=== PATIENT | female | born 1980 | race Two or more races ===

== ENCOUNTER 2017-04-07 13:33 | Inpatient (IN) | payer MEDICAID ==
[~2017-04-07] VITALS: Ht 160 cm; Wt 69.1 kg
[2017-04-07 14:06] LABS: Urine RBC None Seen /hpf (0 - 4)
[2017-04-07 14:21] LABS: Basophils # (auto) 0.1 uL; Basophils % (auto) 1.3 % (0.0-2.0); CONDITION Y; Eosinophils # (auto) 0.5 uL; Eosinophils % (auto) 4.9 % (0.0-7.0); Hematocrit 36.3 % (36.0-46.0); Lymphocytes # (auto) 1.8 uL; Lymphocytes % (auto) 18.6 % (10.0-50.0); Mean Corpuscular Hemoglobin 31.5 pg (28.0-32.0); Mean Corpuscular Hgb Conc. 33.2 g/dL (32.0-36.0); Mean Corpuscular Volume 95.1 fL (80.0-100.0); Mean Platelet Volume 9.4 fL (7.4-10.4); Monocytes # (auto) 0.7 uL; Monocytes % (auto) 7.3 % (0.0-12.0); Neutrophils # (auto) 6.5 uL; Neutrophils % (auto) 67.9 % (37.0-80.0); Platelet Count (auto) 359 10^3/uL (140-450); Red Cell Distribution Width 15.1 % (11.6-16.0); White Blood Cell 9.6 10^3/uL (4.4-10.8)
[2017-04-07 14:23] LABS: Urine Bilirubin Negative (Negative); Urine Blood Negative /uL (Negative); Urine Color Yellow (Yellow); Urine Glucose Normal (Normal); Urine Ketone Negative (Negative); Urine Mucus FEW (None Seen); Urine Nitrite Negative (Negative); Urine Squamous Epithelial Cell FEW /hpf (<5)
[2017-04-07 14:39] LABS: Albumin 2.9 g/dL (3.4-5.0); Calcium 7.9 mg/dL (8.5-10.1); Potassium 4.1 mmol/L (3.5-5.1)
[2017-04-07 14:42] LABS: Bilirubin, Total 0.3 mg/dL (0.2-1.0); Total Protein 6.9 g/dL (6.4-8.2)
[2017-04-07] MEDS ORDERED: ONDANSETRON HCL 4 MG/2 ML VIAL IV ONE (19:45)
[2017-04-07] MEDS ORDERED: SODIUM CHLORIDE 0.9% 1,000 ML IV ONE (19:45)
[2017-04-07] MEDS ORDERED: metroNIDAZOLE 500MG/100ML 100 ML IV ONE (20:00)
[2017-04-07] MEDS ORDERED: cefTRIAXone 1GM/50ML D5W 50 ML IV ONE (20:00)
[2017-04-07] MEDS ORDERED: MORPHINE SULF INJ 2 MG/ML SYRINGE 1ML IV ONE (20:00)
[2017-04-07] MEDS ORDERED: HYDROmorphone HCL 2 MG/ML VL IV ONE (21:00)
[2017-04-07] MEDS ORDERED: PANTOPRAZOLE 40 MG/10 ML VIAL IV ONE (23:45)
[2017-04-07] MEDS ORDERED: TEMAZEPAM 15 MG CAP PO PRN (23:45)
[2017-04-07] MEDS ORDERED: ONDANSETRON HCL 4 MG/2 ML VIAL IV PRN (23:45)
[2017-04-07] MEDS ORDERED: ACETAMINOPHEN 325 MG TAB PO PRN (23:45)
[2017-04-08] VITALS (9 sets, daily range): BP systolic 110–129; BP diastolic 75–91
[2017-04-08] MEDS: SODIUM CHLORIDE 0.9% 1,000 ML IV SCH ×2 (00:15→15:31)
[2017-04-08] MEDS: MORPHINE SULF INJ 2 MG/ML SYRINGE 1ML IV PRN ×4 (01:16→20:49)
[2017-04-08 05:59] LABS: Basophils # (auto) 0.1 uL; Basophils % (auto) 2.5 % (0.0-2.0); CONDITION Y; Eosinophils # (auto) 0.3 uL; Eosinophils % (auto) 6.4 % (0.0-7.0); Hematocrit 32.9 % (36.0-46.0); Hemoglobin 10.7 g/dL (12.2-16.2); Lymphocytes # (auto) 1.7 uL; Mean Corpuscular Hemoglobin 31.3 pg (28.0-32.0); Mean Corpuscular Hgb Conc. 32.4 g/dL (32.0-36.0); Mean Corpuscular Volume 96.3 fL (80.0-100.0); Mean Platelet Volume 10.3 fL (7.4-10.4); Monocytes # (auto) 0.5 uL; Monocytes % (auto) 8.6 % (0.0-12.0); Neutrophils # (auto) 2.7 uL; Neutrophils % (auto) 50.5 % (37.0-80.0); Platelet Count (auto) 255 10^3/uL (140-450); Red Cell Distribution Width 14.9 % (11.6-16.0); White Blood Cell 5.4 10^3/uL (4.4-10.8)
[2017-04-08] MEDS: metroNIDAZOLE 500MG/100ML 100 ML IV SCH ×3 (06:00→20:50)
[2017-04-08 06:36] LABS: Albumin 2.4 g/dL (3.4-5.0); BUN/Creatinine Ratio 13.2; Bilirubin, Total 0.4 mg/dL (0.2-1.0); Calcium 7.8 mg/dL (8.5-10.1); Potassium 3.7 mmol/L (3.5-5.1); Total Protein 5.9 g/dL (6.4-8.2)
[2017-04-08] MEDS: HYDROcodone-ACET 5/325MG TAB PO PRN (08:57)
[2017-04-08] MEDS: PANTOPRAZOLE 40 MG/10 ML VIAL IV SCH (10:00)
[2017-04-08] MEDS ORDERED: VANCOMYCIN PER PHARMACY 0 MG IV SCH (14:15)
[2017-04-08] MEDS: VANCOMYCIN 750 MG in D5W 5% 250 ML IV SCH (16:29)
[2017-04-08] MEDS: cefTRIAXone 1GM/50ML D5W 50 ML IV SCH (20:51)
[2017-04-09] MEDS: VANCOMYCIN 750 MG in D5W 5% 250 ML IV SCH ×2 (04:43→17:11)
[2017-04-09 05:19] LABS: Basophils # (auto) 0 uL; Basophils % (auto) 0.5 % (0.0-2.0); CONDITION Y; Eosinophils # (auto) 0.5 uL; Eosinophils % (auto) 8.4 % (0.0-7.0); Hematocrit 33.8 % (36.0-46.0); Hemoglobin 11.2 g/dL (12.2-16.2); Lymphocytes % (auto) 33.5 % (10.0-50.0); Mean Corpuscular Hemoglobin 31.4 pg (28.0-32.0); Mean Corpuscular Volume 95.2 fL (80.0-100.0); Mean Platelet Volume 9.9 fL (7.4-10.4); Monocytes # (auto) 0.6 uL; Monocytes % (auto) 9.4 % (0.0-12.0); Neutrophils # (auto) 2.9 uL; Neutrophils % (auto) 48.2 % (37.0-80.0); Platelet Count (auto) 308 10^3/uL (140-450); Red Cell Distribution Width 14.9 % (11.6-16.0); White Blood Cell 5.9 10^3/uL (4.4-10.8)
[2017-04-09 05:20] VITALS: BP 132/77
[2017-04-09 05:37] LABS: INR 0.95 (0.9-1.15); Partial Thromboplastin Time 26.9 sec (22.64-33.71); Prothrombin Time 10.3 sec (9.37-12.3)
[2017-04-09 05:42] LABS: Albumin 2.5 g/dL (3.4-5.0); BUN/Creatinine Ratio 11.8; Bilirubin, Total 0.2 mg/dL (0.2-1.0); Calcium 7.8 mg/dL (8.5-10.1); Potassium 3.5 mmol/L (3.5-5.1)
[2017-04-09] MEDS: metroNIDAZOLE 500MG/100ML 100 ML IV SCH (05:48)
[2017-04-09] MEDS: HYDROcodone-ACET 5/325MG TAB PO PRN ×2 (05:48→18:43)
[2017-04-09] MEDS: MORPHINE SULF INJ 2 MG/ML SYRINGE 1ML IV PRN ×3 (08:04→21:55)
[2017-04-09 09:20] VITALS: BP 134/95
[2017-04-09] MEDS: PANTOPRAZOLE 40 MG/10 ML VIAL IV SCH (09:26)
[2017-04-09] MEDS: SODIUM CHLORIDE 0.9% 1,000 ML IV SCH (09:27)
[2017-04-09] MEDS ORDERED: MIDAZOLAM HCL 1MG/1ML-2 ML VIAL ONE (11:30)
[2017-04-09] MEDS ORDERED: fentaNYL CITRATE 100 MCG/2 ML VL ONE (11:31)
[2017-04-09 13:00] VITALS: BP 130/93
[2017-04-09] MEDS: metroNIDAZOLE 500 MG TAB PO SCH ×2 (14:27→21:43)
[2017-04-09 16:42] VITALS: BP 128/90
[2017-04-09] MEDS: cefTRIAXone 1GM/50ML D5W 50 ML IV SCH (21:43)
[2017-04-09 21:56] VITALS: BP 143/102
[2017-04-10] MEDS: SODIUM CHLORIDE 0.9% 1,000 ML IV SCH (01:48)
[2017-04-10] MEDS: HYDROcodone-ACET 5/325MG TAB PO PRN ×4 (01:53→21:47)
[2017-04-10 05:00] VITALS: BP 129/85
[2017-04-10] MEDS: VANCOMYCIN 750 MG in D5W 5% 250 ML IV SCH (05:01)
[2017-04-10] MEDS: metroNIDAZOLE 500 MG TAB PO SCH ×3 (05:24→21:42)
[2017-04-10 06:37] LABS: Albumin 2.5 g/dL (3.4-5.0); BUN/Creatinine Ratio 9.8; Bilirubin, Total 0.3 mg/dL (0.2-1.0); Calcium 7.8 mg/dL (8.5-10.1); Potassium 3.7 mmol/L (3.5-5.1); Total Protein 6.3 g/dL (6.4-8.2)
[2017-04-10] MEDS: MORPHINE SULF INJ 2 MG/ML SYRINGE 1ML IV PRN ×2 (06:42→13:24)
[2017-04-10 08:42] VITALS: BP 132/77
[2017-04-10] MEDS: PANTOPRAZOLE 40 MG/10 ML VIAL IV SCH (09:41)
[2017-04-10 12:53] VITALS: BP 125/75
[2017-04-10] MEDS: LACTULOSE 20Gm/30ML SOLN PO SCH ×2 (14:05→17:57)
[2017-04-10] MEDS: DOCUSATE SOD 100 MG CAP PO SCH ×2 (15:24→21:42)
[2017-04-10 17:10] VITALS: BP 126/87
[2017-04-10] MEDS: cefTRIAXone 1GM/50ML D5W 50 ML IV SCH (21:42)
[2017-04-10 22:13] VITALS: BP 130/91
[2017-04-11] MEDS: LACTULOSE 20Gm/30ML SOLN PO SCH ×4 (00:08→17:57)
[2017-04-11 05:31] VITALS: BP 126/70
[2017-04-11] MEDS: metroNIDAZOLE 500 MG TAB PO SCH ×3 (06:01→22:03)
[2017-04-11] MEDS: HYDROcodone-ACET 5/325MG TAB PO PRN ×4 (06:01→20:20)
[2017-04-11 09:25] VITALS: BP 117/79
[2017-04-11] MEDS: PANTOPRAZOLE 40 MG/10 ML VIAL IV SCH (09:58)
[2017-04-11] MEDS: DOCUSATE SOD 100 MG CAP PO SCH ×2 (09:58→22:03)
[2017-04-11 12:43] VITALS: BP 120/82
[2017-04-11 16:07] LABS: Albumin 2.8 g/dL (3.4-5.0); Calcium 7.8 mg/dL (8.5-10.1); Potassium 4.4 mmol/L (3.5-5.1)
[2017-04-11 16:09] LABS: BUN/Creatinine Ratio 10.6
[2017-04-11 16:14] LABS: Bilirubin, Total 0.2 mg/dL (0.2-1.0); Total Protein 6.3 g/dL (6.4-8.2)
[2017-04-11 16:47] VITALS: BP 123/85
[2017-04-11] MEDS: cefTRIAXone 1GM/50ML D5W 50 ML IV SCH (22:03)
[2017-04-11 22:16] VITALS: BP 101/76
[2017-04-12] MEDS: LACTULOSE 20Gm/30ML SOLN PO SCH ×4 (00:31→18:00)
[2017-04-12] MEDS: HYDROcodone-ACET 5/325MG TAB PO PRN ×4 (04:31→21:17)
[2017-04-12] MEDS: metroNIDAZOLE 500 MG TAB PO SCH ×3 (05:33→22:35)
[2017-04-12 05:40] VITALS: BP 121/79
[2017-04-12] MEDS ORDERED: GASTROGRAFIN 30 ML SOL ONE (08:11)
[2017-04-12 08:42] VITALS: BP 104/72
[2017-04-12] MEDS: PANTOPRAZOLE 40 MG/10 ML VIAL IV SCH (09:46)
[2017-04-12] MEDS: DOCUSATE SOD 100 MG CAP PO SCH ×2 (09:47→22:00)
[2017-04-12] MEDS ORDERED: IOHEXOL 300 MG/ML 100ML BOTTLE IJ ONE (10:11)
[2017-04-12 12:37] VITALS: BP 135/84
[2017-04-12 16:48] VITALS: BP 117/67
[2017-04-12 22:00] VITALS: BP 124/88
[2017-04-12] MEDS: cefTRIAXone 1GM/50ML D5W 50 ML IV SCH (22:36)
[2017-04-13] MEDS: HYDROcodone-ACET 5/325MG TAB PO PRN ×2 (04:49→10:11)
[2017-04-13 05:00] VITALS: BP 116/75
[2017-04-13] MEDS: LACTULOSE 20Gm/30ML SOLN PO SCH ×3 (05:31→11:51)
[2017-04-13] MEDS: metroNIDAZOLE 500 MG TAB PO SCH (05:35)
[2017-04-13 09:00] VITALS: BP 117/73
[2017-04-13] MEDS ORDERED: PANTOPRAZOLE 40 MG TAB PO SCH (10:00)
[2017-04-13] MEDS: DOCUSATE SOD 100 MG CAP PO SCH (10:05)
[2017-04-13 12:50] VITALS: BP 117/73
== END 2017-04-13 13:34 | disposition home or self-care (01) | DRG 721 ==
LOC: ER 13:33 → TELE 13:34 → TELE-WESTW 04-08 00:30 → WEST WING 04-08 07:46
PROVIDERS: ADMIT Nurse Practitioner; ATTEND Internal Medicine
PROC: 0J983ZZ Drainage of Abdomen Subcutaneous Tissue and Fascia, Percutaneous Approach (ICD-10-PCS; principal; 2017-04-09)
DX: T81.4XXA Infection following a procedure, initial encounter (principal); A41.9 Sepsis, unspecified organism; E44.0 Moderate protein-calorie malnutrition; L02.211 Cutaneous abscess of abdominal wall; K91.872 Postprocedural seroma of a digestive system organ or structure following a digestive system procedure; N39.0 Urinary tract infection, site not specified; G47.00 Insomnia, unspecified; R79.89 Other specified abnormal findings of blood chemistry; Y83.8 Other surgical procedures as the cause of abnormal reaction of the patient, or of later complication, without mention of misadventure at the time of the procedure; K52.9 Noninfective gastroenteritis and colitis, unspecified; Y73.3 Surgical instruments, materials and gastroenterology and urology devices (including sutures) associated with adverse incidents; K59.00 Constipation, unspecified; Z98.84 Bariatric surgery status; Z68.27 Body mass index [BMI] 27.0-27.9, adult; Z90.49 Acquired absence of other specified parts of digestive tract; Y92.89 Other specified places as the place of occurrence of the external cause
CPT/HCPCS: 10022; 36415; 71010; 74176; 74177; 76705; 76942; 80053; 80202; 81001; 83605; 83690; 84702; 85025; 85610; 85730; 87040; 87070; 87081; 87086; 96361; 96365; 96367; 96375; C9113; J0696; J2250; J2405; J3490; J7060

== ENCOUNTER 2017-04-14 18:29 | Emergency (ER) | payer MEDICAID ==
[~2017-04-14] VITALS: Ht 160 cm; Wt 68.0 kg
[2017-04-14 18:39] VITALS: BP 128/87
== END 2017-04-15 02:20 | disposition left against medical advice (07) ==
LOC: ER 18:31
DX: S31.109D Unspecified open wound of abdominal wall, unspecified quadrant without penetration into peritoneal cavity, subsequent encounter (principal); Z53.21 Procedure and treatment not carried out due to patient leaving prior to being seen by health care provider; X58.XXXD Exposure to other specified factors, subsequent encounter

== ENCOUNTER 2023-02-08 11:04 | Emergency (ER) | payer MEDICAID ==
[~2023-02-08] VITALS: Ht 165.1 cm; Wt 87.7 kg
[2023-02-08 11:44] LABS: Urine Bacteria MANY /hpf (None Seen); Urine Blood Negative /uL (Negative); Urine Mucus FEW (None Seen); Urine Specific Gravity 1.018 (1.001-1.035); Urine WBC 1 /hpf (0 - 5)
[2023-02-08 11:47] LABS: Basophils # (auto) 0.1 10 ^3/uL (0-0.2); Basophils % (auto) 1.3 % (0.0-2.0); Eosinophils # (auto) 0.2 10 ^3/uL (0-0.8); Hematocrit 33.8 % (36.0-46.0); Hemoglobin 10.6 g/dL (12.2-16.2); Lymphocytes # (auto) 2.8 10 ^3/uL (0.4-5.4); Lymphocytes % (auto) 28.9 % (10.0-50.0); Mean Corpuscular Hemoglobin 27.9 pg (28.0-32.0); Mean Corpuscular Hgb Conc. 31.3 g/dL (32.0-36.0); Mean Corpuscular Volume 89.2 fL (80.0-100.0); Monocytes # (auto) 0.6 10 ^3/uL (0-1.3); Monocytes % (auto) 6.4 % (0.0-12.0); Neutrophils % (auto) 61.4 % (37.0-80.0); Nucleated Red Blood Cells % 0.1 %; Red Blood Cells 3.79 10^6/uL (4.0-5.20); Red Cell Distribution Width 21.1 % (11.8-14.3); White Blood Cell 9.7 10^3/uL (4.4-10.8)
[2023-02-08 12:05] LABS: Albumin 2.9 g/dL (3.4-5.0); BUN/Creatinine Ratio 9.5 (10.0-20.0); Potassium 4.4 mmol/L (3.5-5.1)
[2023-02-08 12:07] LABS: Bilirubin, Total 0.6 mg/dL (0.2-1.0); Total Protein 6.8 g/dL (6.4-8.2)
[2023-02-08] MEDS ORDERED: NITR-87 PO (15:13)
[2023-02-08 15:37] VITALS: BP 122/83
== END 2023-02-08 15:44 | disposition home or self-care (01) ==
LOC: ER 11:08
DX: K76.0 Fatty (change of) liver, not elsewhere classified (principal); R74.8 Abnormal levels of other serum enzymes; N39.0 Urinary tract infection, site not specified
CPT/HCPCS: 36415; 74176; 80053; 81001; 85025

== ENCOUNTER 2025-03-20 16:29 | Inpatient (IN) | payer MEDICAID ==
[~2025-03-20] VITALS: Ht 157.5 cm; Wt 83.5 kg
[~2025-03-20 16:29] MED LIST: NITR-87 PO
[2025-03-20] MEDS: MORPHINE SULFATE 4 MG/ML SYR/VIAL IV ONE (17:45)
--- NOTE | 2025-03-20 17:46 | ED.PDOC ---
GI ASSESSMENT HPI Comments 45y F who presents to the ED for chief complaint of abdominal pain. Pt states she has been having abdominal pain radiating to the back for the past 4 days. Pt states the pain is diffusely located, sharp in nature, rating the pain 10/10, constant, with no associated exacerbating or relieving factors. Pt has associated nausea, vomiting and constipation but otherwise denies any other symptoms. Pt states she had similar symptoms 8x years prior and states had small bowel obstruction and had surgery to relieve the obstruction. Pt otherwise states she cant remember when she last had bowel movement. Pt otherwise denies any symptoms at this time. Chief Complaint: Abdominal Pain Time Seen by MD: 17:42 Primary Care Provider: NONE Reviewed Notes: Nurses Notes, Medications, Allergies Allergies: Coded Allergies: NO KNOWN ALLERGIES (Unverified , 04/08/17) Home Meds Active Scripts Nitrofurantoin Monohydrate Mac (Macrobid) 100 Mg Cap, 100 MG PO BID for 7 Days, #14 CAP Prov:ARYAN CATHERINE MD 02/08/23 Information Source: Patient Mode of Arrival: Ambulatory Brought in by: self Timing: Days Duration: Since onset Prehospital treatment: None Quality: Sharp Vomitus: Food Particles Stool: Normal Severity: Moderate Recent: None Recent Hx of: Constipation Pain Location: Diffuse Modifying Factors: Nothing Associated sign and symptoms: Nausea, Vomiting, Constipation, Abdominal Pain Past Medical History PAST MEDICAL HISTORY: Denies Surgical History: Appendectomy, Cholecystectomy, Surgical History (Other): bowel resection for SBO 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 Family History Family History: Reviewed,noncontributory to illness Social History Smoker: Cigarettes Alcohol: Occasionally Drugs: Denies Drug Use Lives In: Home Constitutional: denies: chills, diaphoresis, fatigue, fever, malaise, sweats, weakness, others EENTM: denies: blurred vision, double vision, ear bleeding, ear discharge, ear drainage, ear pain, ear ringing, eye pain, eye redness, hearing loss, mouth pain, mouth swelling, nasal discharge, nose bleeding, nose congestion, nose pain, photophobia, tearing, throat pain, throat swelling, voice changes, others Respiratory: denies: cough, hemoptysis, orthopnea, SOB at rest, shortness of breath, SOB with excertion, stridor, wheezing, others Cardiovascular: denies: chest pain, dizzy spells, diaphoresis, Dyspnea on exertion, edema, irregular heart beat, left arm pain, lightheadedness, palpitations, PND, syncope, others Gastrointestinal: reports: abdominal pain, constipated, nausea, vomiting; denies: abdomen distended, blood streaked bowels, diarrhea, dysphagia, difficulty swallowing, hematemesis, melena, poor appetite, poor fluid intake, rectal bleeding, rectal pain, others Genitourinary: denies: abnormal vagina bleeding, burning, dyspareunia, dysuria, flank pain, frequency, hematuria, incontinence, pain, , vagina discharge, urgency, others Neurological: denies: dizziness, fainting, headache, left sided numbness, left sided weakness, numbness, paresthesia, pre-existing deficit, right sided numbness, right sided weakness, seizure, speech problems, tingling, tremors, weakness, others Musculoskeletal: denies: back pain, gout, joint pain, joint swelling, muscle pain, muscle stiffness, neck pain, others Integumetry: denies: bruises, change in color, change in hair/nails, dryness, laceration, lesions, lumps, rash, wounds, others Allergic/Immunocompromised: denies: Difficulty Healing, Frequent Infections, Hives, Itching, others Hematologic/Lymphatic: denies: anemia, blood clots, easy bleeding, easy bruising, swollen glands, others Endocrine: denies: excessive hunger, excessive sweating, excessive thirst, excessive urination, flushing, intolerance to cold, intolerance to heat, unexplained weight gain, unexplained weight loss, others Psychiatric: denies: anxiety, bipolar disorder, depression, hopeless, panic dis order, schizophrenia, sleepless, suicidal, others All Other Systems: Reviewed and Negative Physical Exam General Appearance: Moderate Distress HEENT: Normal ENT Inspection, Pharynx Normal, TMs Normal Neck: Full Range of Motion, Non-Tender, Normal, Normal Inspection Respiratory: Chest Non-Tender, Lungs Clear, No Accessory Muscle Use, No Respiratory Distress, Normal Breath Sounds Cardiovascular: No Edema, No JVD, No Murmur, No Gallop, Normal Peripheral Pulses, Regular Rate/Rhythm Breast Exam: Deferred Gastrointestinal: Diffuse, No Organomegaly, No Pulsatile Mass, Normal Bowel Sounds, Soft, Tenderness Genitalia: Deferred Pelvic: Deferred Rectal: Deferred Extremities: No calf tenderness, Normal capillary refill, Normal inspection, Normal range of motion, Non-tender, No pedal edema Musculoskeletal : Apperance: Normal Neurologic: Alert, funeral greeter II-XII nml as Tested, No Motor Deficits, Normal Affect, Normal Mood, No Sensory Deficits Cerebellar Function: Normal Reflexes: Normal Skin: Dry, Normal Color, Warm Lymphatic: No Adenopathy Was a procedure done? Was a procedure done?: No GI differential Dx Differential Diagnosis: Bowel Obstruction, Cholangitis, Cholecystitis, Constipa tion, Hernia, Pancreatitis, Hypovolemia, Ischemic Bowel X-Ray, Labs, Meds, VS Vital Signs Date Time Temp Pulse Resp B/P (MAP) Pulse Ox O2 Delivery O2 Flow Rate FiO2 03/20/25 16:32 98.7 101 18 140/93 98 98.7 Lab Test 03/20/25 18:09 Range/Units White Blood Count 11.1 H 4.4-10.8 10^3/uL Red Blood Count 3.47 L 4.0-5.20 10^6/uL Hemoglobin 13.0 12.2-16.2 g/dL Hematocrit 37.6 36.0-46.0 % Mean Corpuscular Volume 108.5 H 80.0-100.0 fL Mean Corpuscular Hemoglobin 37.4 H 28.0-32.0 pg Mean Corpuscular Hemoglobin Concent 34.5 32.0-36.0 g/dL Red Cell Distribution Width 24.9 H 11.8-14.3 % Platelet Count 172 140-450 10^3/uL Mean Platelet Volume 9.5 6.9-10.8 fL Neutrophils (%) (Auto) 71.5 37.0-80.0 % Lymphocytes (%) (Auto) 19.9 10.0-50.0 % Monocytes (%) (Auto) 7.1 0.0-12.0 % Eosinophils (%) (Auto) 0.9 0.0-7.0 % Basophils (%) (Auto) 0.6 0.0-2.0 % Neutrophils # (Auto) 8.0 1.6-8.6 10 ^3/uL Lymphocytes # (Auto) 2.2 0.4-5.4 10 ^3/uL Monocytes # (Auto) 0.8 0-1.3 10 ^3/uL Eosinophils # (Auto) 0.1 0-0.8 10 ^3/uL Basophils # (Auto) 0.1 0-0.2 10 ^3/uL Nucleated Red Blood Cells 0.0 % Platelet Estimate Adequate Anisocytosis (manual) Slight Macrocytosis Moderate Sodium Level 137 136-145 mmol/L Potassium Level 4.2 3.5-5.1 mmol/L Chloride Level 105 98-107 mmol/L Carbon Dioxide Level 25 20-31 mmol/L Anion Gap 7 5-15 Blood Urea Nitrogen 7 L 9-23 mg/dL Creatinine 0.74 0.550-1.02 mg/dL Glomerular Filtration Rate Calc 102 >90 mL/min BUN/Creatinine Ratio 9.5 L 10.0-20.0 Serum Glucose 94 74-106 mg/dL Calcium Level 8.7 8.7-10.4 mg/dL Exam: CT CT AB PEL WO CON-NO ORAL OR IV IMPRESSION: 1. No acute abdominal or pelvic findings. Diffuse hepatic steatosis. The patient's urine test is negative for infection The CBC shows an elevated white blood cell count of 11.1 At this time, the patient continues to have abdominal pain At this time the patient is being admitted to the hospitalist Images Reviewed?: Images reviewed and evaluated by me Time of 1ST Reevaluation: 20:51 Reevaluation 1ST: Unchanged Patient Education/Counseling: Diagnosis, Treatment, Prognosis Family Education/Counseling: No Family Present SEPSIS Sepsis Screen Date sepsis recognized/suspect: Mar 20, 2025 Time Sepsis recognized/suspect: 1631 Recent Procedure: No On Antibiotic Therapy: No Respiratory Rate >20: No Heart Rate >90: Yes Temp<36 C (96.8 F) or >38.3 C: No SBP <90 or MAP <65 mmHG: No New Acute Mental Status Change: No Is the patient on CPAP, BIPAP,: No Physician Orders Urinalysis (03/20/25 17:39) Ct Ab Pel Wo Con-No Oral Or Iv (03/20/25 17:39) Heplock Iv (03/20/25 17:39) Inspector Machine Cut Glass (03/20/25 17:39) Blood Pressure (03/20/25 17:39) Pulse Oximetry (03/20/25 17:39) Vital Signs Date Time Temp Pulse Resp B/P (MAP) Pulse Ox O2 Delivery O2 Flow Rate FiO2 03/20/25 16:32 98.7 101 18 140/93 98 98.7 Laboratory Tests Test 03/20/25 18:09 White Blood Count 11.1 10^3/uL (4.4-10.8) H Departure 1 Departure Time of Disposition: 20:51 Impression: Primary Impression: Intractable abdominal pain Disposition: ADMITTED INPATIENT Admit to: Med Surg Condition: Fair Critical Care Note Critical Care Time?: No Stability Stability form required: Yes Unstable for transfer: ED Physician Assesment (Clinical assesment) Heart Score Heart Score: Heart Score Response (Comments) Value History N/A 0 EKG N/A 0 Age N/A 0 Risk Factors N/A 0 Troponin N/A 0 Total 0 I personally scribed for MELL PEDROZA MD ([email or web address]) on 03/20/25 at 17:46. Electronically submitted by Herman Mireles ([email or web address]). I personally scribed for MELL PEDROZA MD ([email or web address]) on 03/20/25 at 18:48. Electronically submitted by Herman Mireles ([email or web address]). MELL PEDROZA MD Mar 20, 2025 17:46
--- NOTE | 2025-03-20 18:18 | DVH ---
Exam: CT CT AB PEL WO CON-NO ORAL OR IV History: pain Comparison Study: CT CT AB PEL WO CON-NO ORAL OR IV on DOS: 02/08/23 Technique: Multidetector spiral CT of the abdomen and pelvis was performed from lung bases to pubic symphysis. Imaging was performed without IV contrast. Axial, coronal and sagittal multiplanar reform ats were obtained from the axial data set by the technologist. Radiation dose : Abdomen/Pelvis: CTDIvol 11 mGy, DLP 574 mGy*cm. Findings: Evaluation of solid organs is limited due to lack of intravenous contrast use. Lung Bases: No acute or significant lung base finding. Normal heart size. No pleural or pericardial effusion. Liver: Diffuse hepatic steatosis. Gallbladder and biliary Tree: Gallbladder is surgically absent. Spleen: Unremarkable Pancreas: The pancreas is grossly normal in appearance. Adrenal Glands: Unremarkable Kidneys: Kidneys are grossly normal without calculi or hydronephrosis. Bladder: Grossly unremarkable for degree of distention. Bowel: Postsurgical changes in the stomach bowel. No evidence of bowel obstruction. The appendix is not visualized; however, no secondary findings of acute appendicitis identified. Ascites: Absent Lymphadenopathy: No mesenteric, retroperitoneal or periportal lymphadenopathy. Abdominal wall and Mesentery: Unremarkable. Vasculature: The visualized abdominal aorta is normal in size and caliber. Evaluation of abdominal a nd pelvic vessels is limited due to lack of intravenous contrast. Pelvic Organs: Intrauterine device in place. Musculoskeletal: No aggressive focal bony lesions, acute fractures or dislocation. IMPRESSION: 1. No acute abdominal or pelvic findings. Diffuse hepatic steatosis. Radiation optimization: All CT scans at this facility use at least one of these dose optimization lakia hniques: Automated exposure control mA and/or kV adjustment per patient size (includes targeted exams where dose is matched to clinical indication) or iterative reconstruction. HS:Y
[2025-03-20 18:20] LABS: Hematocrit 37.6 % (36.0-46.0); Hemoglobin 13.0 g/dL (12.2-16.2); Mean Corpuscular Hemoglobin 37.4 pg (28.0-32.0); Mean Corpuscular Volume 108.5 fL (80.0-100.0); Nucleated Red Blood Cells % 0.0 %
[2025-03-20 18:28] LABS: Chloride 105 mmol/L (98-107); Potassium 4.2 mmol/L (3.5-5.1); Sodium 137 mmol/L (136-145)
[2025-03-20 18:29] LABS: Anion Gap 7 (5-15); Calcium 8.7 mg/dL (8.7-10.4); Carbon Dioxide 25 mmol/L (20-31)
[2025-03-20 18:34] LABS: BUN/Creatinine Ratio 9.5 (10.0-20.0); Glucose 94 mg/dL (74-106)
[2025-03-20 18:35] LABS: Blood Urea Nitrogen 7 mg/dL (9-23)
[2025-03-20 18:39] LABS: Anisocytosis Slight; Macrocytosis Moderate
[2025-03-20] MEDS ORDERED: ONDANSETRON HCL 4 MG/2 ML VIAL IV PRN (22:15)
--- NOTE | 2025-03-20 23:07 | DVHHPRES ---
History of Present Illness Resident Creating Document: JERMAINE RANGEL RESIDENT History of Present Illness Radha Shields is a 45 yo female wit past medical history of SBO + laparotomy (2016) The patient presented to the ED for chief complaint of 4 days of abdominal pain, cramp-like, diffuse, irradiating to the flanks and back, associated with nausea and vomit. The patient reports not having a bowel movement in the last 7 days. Today, the abdominal pain increased to 10/10, constant, the patient reports she is not passing gases. The patient reports having similar symptoms due to SBO on 2017. The patient denies fever, chills, abdomen distention, or other symptoms. Initial evaluation showed WBC 11.1 x10e3 u/l. Abd/Pelv CT scan No acute abdominal or pelvic findings. Diffuse hepatic steatosis. UA negative for infection, HCG 2.9. CT Abdomen showed: Bowel: Postsurgical changes in the stomach bowel. No evidence of bowel obstruction. The appendix is not visualized; however, no secondary findings of acute appendicitis identified. No acute abdominal or pelvic findings. Diffuse hepatic steatosis. Past Surgical History: Appendectomy, Cholecystectomy, , Other (Laparotomy in 2017 due to SBO) Family History: None Smoke: <1 pack per day ALCOHOL: occassional Drugs: None Lives: with Family Review of Systems Constitutional: No: Fever, Chills, Sweats, Weakness, Malaise, Other Eyes: No: Pain, Vision change, Conjunctivae inflammation, Eyelid inflammation, Other, Redness ENT: No: Ear pain, Ear discharge, Nose pain, Nose discharge, Nose congestion, Mouth pain, Mouth swelling, Throat pain, Throat swelling, Other Respiratory: No: Cough, Dry, Shortness of breath, SOB with excertion, Wheezing, Hemoptysis, Pleuritic Pain, Sputum, Wheezing, Other Cardiovascular: No: Chest Pain, Palpitations, Orthopnea, Paroxysmal Noc. Dys pnea, Edema, Lt Headedness, Other Gastrointestinal: Nausea, Vomiting, Abdominal Pain, Constipation Genitourinary: No Dysuria, No Frequency, No Incontinence, No Hematuria, No Retention, No Other Musculoskeletal: No: other, neck pain, shoulder pain, arm pain, back pain, hand pain, leg pain, foot pain Skin: No: Rash, Lesions, Jaundice, Bruising, Other Neurological: No: Weakness, Numbness, Incoordination, Change in speech, Confusion, Seizures, Other Allergies: Coded Allergies: NO KNOWN ALLERGIES (Unverified , 04/08/17) Medications Current Medications Medications Dose Ordered Sig/Belle Route Start Time Stop Time Status Last Admin Dose Admin Acetaminophen/ Hydrocodone Bitart 1 tab Q4HP PRN PO 03/20/25 22:15 Ondansetron HCl 4 mg Q4HP PRN IV 03/20/25 22:15 Morphine Sulfate 2 mg Q4HPRN PRN IV 03/20/25 22:15 Exam Vital Signs Vital Signs Date Time Temp Pulse Resp B/P (MAP) Pulse Ox O2 Delivery O2 Flow Rate FiO2 03/20/25 22:26 98.3 86 16 145/88 (107) 99 98.3 General Appearance: Alert, Oriented X3, Cooperative, moderate distress HEENT: Atraumatic, Mucous membr. moist/pink Respiratory: Clear to auscultation, Normal air movement Cardiovascular: Regular rate, Normal S1, Normal S2, No murmurs Abdominal: Other (bowel movements present 2+, flat, not distended, vertical scar on epigastio from prevous surgery. Difussely tender to palpation in all quadrants, guarding.) Extremities: No clubbing, No cyanosis, No edema, Normal pulses, No te nderness/swelling Skin: No rashes Neuro: Normal gait, Normal speech, Strength at 5/5 X4 ext, Normal tone, Sensation intact, Cranial nerves 3-12 NL Psych/Mental Status: Mental status NL, Mood NL Labs/Xrays Labs Test 03/20/25 18:09 Range/Units White Blood Count 11.1 H 4.4-10.8 10^3/uL Red Blood Count 3.47 L 4.0-5.20 10^6/uL Hemoglobin 13.0 12.2-16.2 g/dL Hematocrit 37.6 36.0-46.0 % Mean Corpuscular Volume 108.5 H 80.0-100.0 fL Mean Corpuscular Hemoglobin 37.4 H 28.0-32.0 pg Mean Corpuscular Hemoglobin Concent 34.5 32.0-36.0 g/dL Red Cell Distribution Width 24.9 H 11.8-14.3 % Platelet Count 172 140-450 10^3/uL Mean Platelet Volume 9.5 6.9-10.8 fL Neutrophils (%) (Auto) 71.5 37.0-80.0 % Lymphocytes (%) (Auto) 19.9 10.0-50.0 % Monocytes (%) (Auto) 7.1 0.0-12.0 % Eosinophils (%) (Auto) 0.9 0.0-7.0 % Basophils (%) (Auto) 0.6 0.0-2.0 % Neutrophils # (Auto) 8.0 1.6-8.6 10 ^3/uL Lymphocytes # (Auto) 2.2 0.4-5.4 10 ^3/uL Monocytes # (Auto) 0.8 0-1.3 10 ^3/uL Eosinophils # (Auto) 0.1 0-0.8 10 ^3/uL Basophils # (Auto) 0.1 0-0.2 10 ^3/uL Nucleated Red Blood Cells 0.0 % Platelet Estimate Adequate Anisocytosis (manual) Slight Macrocytosis Moderate Sodium Level 137 136-145 mmol/L Potassium Level 4.2 3.5-5.1 mmol/L Chloride Level 105 98-107 mmol/L Carbon Dioxide Level 25 20-31 mmol/L Anion Gap 7 5-15 Blood Urea Nitrogen 7 L 9-23 mg/dL Creatinine 0.74 0.550-1.02 mg/dL Glomerular Filtration Rate Calc 102 >90 mL/min BUN/Creatinine Ratio 9.5 L 10.0-20.0 Serum Glucose 94 74-106 mg/dL Calcium Level 8.7 8.7-10.4 mg/dL SEPSIS Sepsis Screen Date sepsis recognized/suspect: Mar 20, 2025 Time Sepsis recognized/suspect: 1631 Recent Procedure: No On Antibiotic Therapy: No Respiratory Rate >20: No Heart Rate >90: Yes Temp<36 C (96.8 F) or >38.3 C: No SBP <90 or MAP <65 mmHG: No New Acute Mental Status Change: No Is the patient on CPAP, BIPAP,: No Physician Orders Urinalysis (03/20/25 17:39) Ct Ab Pel Wo Con-No Oral Or Iv (03/20/25 17:39) Heplock Iv (03/20/25 17:39) Rehabilitation Case Coordinator (03/20/25 17:39) Blood Pressure (03/20/25 17:39) Pulse Oximetry (03/20/25 17:39) Admit (03/20/25 22:12) Code Status (03/20/25 22:12) Vital Signs .PER UNIT PROTOCOL (03/20/25 22:12) Review Orders With Adm.Md (03/20/25 22:12) Bedrest With Bathroom Privileg (03/20/25 22:12) Npo (Nothing By Mouth) Diet (03/21/25 Breakfast) Notify Md Of Changes From Base (03/20/25 22:12) Advance Directive (03/20/25 22:12) Patient Condition (03/20/25 22:12) Allergies (03/20/25 22:12) Hydrocodone-Acet 5/325mg Tab ([place] (03/20/25 22:15) Ondansetron Hcl (Zofran) (03/20/25 22:15) Morphine Sulfate Injection (03/20/25 22:15) Notify Md Of Changes From Base (03/20/25 22:12) * Surgical Consult (03/20/25 ) Small Bowel Series-W Gastrogra (03/20/25 22:15) Beta Hcg, Quantitative (03/20/25 22:15) Vital Signs Date Time Temp Pulse Resp B/P (MAP) Pulse Ox O2 Delivery O2 Flow Rate FiO2 03/20/25 22:26 98.3 86 16 145/88 (107) 99 98.3 03/20/25 16:32 98.7 101 18 140/93 98 98.7 Laboratory Tests Test 03/20/25 18:09 White Blood Count 11.1 10^3/uL (4.4-10.8) H Assessment/Plan Assessment/Plan #Intractable abdominal pain #Rule out SBO #Leukocytosis IV fluids Morphine 2mg IV Flagyl IV Ceftriaxone IV Abdo/Pelvis CT Scan Gastrografin abdominal series Surgical consult #PO Intolerance IV fluids Zofran 4mg IV #Constipation #Hepatic Steatosis F/U with PCP as an out patient Diet: NPO DVT prophylaxis-Patient deambulating PUD prophylaxis Protonic Goals of care discussed with the patient > 35 min. Discussed plan of care with Dr. Antoine Code status: Full code PCP: Does not recall name Plan discussed with: Patient, the patient agrees with the admission plan. Plan discussed with: Patient My Orders Orders - CLAIRE,JERMAINE RESIDENT Procedure Category Date Status Time Admit ADMIT 03/20/25 Transmitted 22:12 Code Status CODE 03/20/25 Transmitted 22:12 Vital Signs ANA LUISA 03/20/25 In Process 22:12 Review Orders With [facility] 03/20/25 In Process Adm. 22:12 Bedrest With Bathroom ANA LUISA 03/20/25 In Process Privileg 22:12 Npo (Nothing By DIET 03/21/25 Transmitted Mouth) Diet Breakfast Notify Md Of Changes [facility] 03/20/25 In Process From Base 22:12 Advance Directive ANA LUISA 03/20/25 In Process 22:12 Patient Condition ORDERS 03/20/25 Transmitted 22:12 Allergies ANA LUISA 03/20/25 In Process 22:12 Hydrocodone-Acet PHA 03/20/25 In Process 5/325mg Tab ([place] 22:15 Ondansetron Hcl PHA 03/20/25 In Process (Zofran) 22:15 Morphine Sulfate PHA 03/20/25 In Process Injection 22:15 Notify Md Of Changes [facility] 03/20/25 In Process From Base 22:12 * Surgical Consult CONS 03/20/25 Transmitted Small Bowel Series-W XY 03/20/25 Logged Gastrogra 22:15 Beta Hcg, Quantitative LAB 03/20/25 In Process 22:15 Common Visit Codes: 72737-OOZNLOT INP/OBS CARE (HIGH) Secondary Visit Codes: 59062-ZODYRWHK CARE PLAN 30 MINUTES JERMAINE RANGEL RESIDENT Mar 20, 2025 23:07
[2025-03-21] VITALS (8 sets, daily range): BP systolic 107–129; BP diastolic 72–89; PULSE 67–83; RESP 16–18; TEMP 97.8–98.8; O2SAT 95–99
[2025-03-21] MEDS: ONDANSETRON HCL 4 MG/2 ML VIAL IV ONE (03:59)
[2025-03-21] MEDS: PANTOPRAZOLE 40 MG/10 ML VIAL INJ IV ONE (04:00)
[2025-03-21] MEDS: MORPHINE SULFATE INJ 2 MG/ml SYRG IV PRN (04:00)
[2025-03-21] MEDS: SODIUM CHLORIDE 0.9% 500 ML IVB ONE (04:12)
[2025-03-21] MEDS: cefTRIAXone 1GM/50ML D5W 50 ML IV SCH (04:23)
[2025-03-21 06:29] LABS: Hematocrit 33.0 % (36.0-46.0); Hemoglobin 11.5 g/dL (12.2-16.2); Mean Corpuscular Hemoglobin 38.1 pg (28.0-32.0); Mean Corpuscular Volume 109.7 fL (80.0-100.0); Nucleated Red Blood Cells % 0.1 %
[2025-03-21 07:18] LABS: Albumin 3.4 g/dL (3.2-4.8); Anion Gap 8 (5-15); BUN/Creatinine Ratio 11.5 (10.0-20.0); Carbon Dioxide 23 mmol/L (20-31); Glucose 75 mg/dL (74-106); Potassium 3.5 mmol/L (3.5-5.1); Sodium 138 mmol/L (136-145); Total Protein 6.2 g/dL (5.7-8.2)
[2025-03-21 07:20] LABS: Alanine Aminotransferase 72 U/L (7-40); Alkaline Phosphatase 254 U/L (46-116); Bilirubin, Total 2.8 mg/dL (0.2-1.0); Blood Urea Nitrogen 7 mg/dL (9-23); Calcium 8.2 mg/dL (8.7-10.4); Chloride 107 mmol/L (98-107)
[2025-03-21] MEDS ORDERED: GASTROGRAFIN 120 ML SOL ONE (08:43)
[2025-03-21 09:04] LABS: Anisocytosis Moderate; Macrocytosis Moderate
[2025-03-21] MEDS: KETOROLAC TROMETH 30 MG/ML 1ML VIAL IV ONE (12:27)
--- NOTE | 2025-03-21 12:35 | DVH ---
Procedure: XY SMALL BOWEL SERIES-W GASTROGRA Reason for study/Clinical History: Intractable abdominal Pain Comparison Study: None Technique: Single contrast small bowel series performed. FINDINGS/IMPRESSION: Initial snuff maker view of the abdomen and pelvis appears demonstrates no acute process. Contrast is identified within the colon by 45 minutes. This represents a normal small bowel transit time.
[2025-03-21] MEDS: D5W/SOD CHLO 0.9% 1,000 ML IV SCH (14:15)
[2025-03-21] MEDS ORDERED: POLYETHYLENE GLYCOL 17 GM PWDR PO PRN (16:30)
--- NOTE | 2025-03-21 16:33 | DVHCONRES ---
Date Seen: Mar 21, 2025 Resident Creating Document: LEONOR WHEELER RESIDENT Referring Physician Chiki Rai MD Reason for Consultation Intractable abdominal pain History of Present Illness This is a 45-year-old female with a history of small bowel obstruction (SBO) and laparotomy (2016), cholecystectomy, and appendectomy, presenting with 4 days of diffuse, cramping abdominal pain radiating to the flanks and back, associated with nausea, vomiting, and absence of flatus or bowel movement. Pain severity has increased to 10/10, constant. She reports last bowel movement 7 days ago and current PO intolerance. She had similar symptoms during her prior SBO episode in 2017. She denies fever, chills, dysuria, or recent dietary changes. Todays Progress Summary * Abdominal pain persists, localized and worsened. * PO intolerance continues with persistent nausea and vomiting. * Constipation ongoing no bowel movement for 7 days, not passing gas. * Leukocytosis mildly improved but still elevated. * LFTs mildly elevated (AST 165, ALT 72, Alk Phos 254, TBili 2.8). * CT abdomen/pelvis: No acute bowel obstruction, diffuse hepatic steatosis, no acute surgical findings. * IV antibiotics (Flagyl + Ceftriaxone) ongoing. * NPO with IV hydration. * Pain managed with IV morphine. Past Medical History * SBO with laparotomy (2016) * Constipation * Possible hepatic steatosis Past Surgical History * Appendectomy * Cholecystectomy * section * Exploratory laparotomy (2016) Family History: Patient reports no known family medical history. Family History * Lives with family Social History * Smoker: <1 pack/day * Alcohol: Occasional * No drug use * Lives with family Allergies: Coded Allergies: NO KNOWN ALLERGIES (Unverified , 04/08/17) Home Meds Active Scripts Nitrofurantoin Monohydrate Mac (Macrobid) 100 Mg Cap, 100 MG PO BID for 7 Days, #14 CAP Prov:ARYAN CATHERINE MD 02/08/23 Current Medications Current Medications Medications (Trade) Dose Ordered Sig/Belle Route PRN Reason Start Time Stop Time Status Last Admin Acetaminophen/ Hydrocodone Bitart (Hayden 5/325MG Tab) 1 tab Q4HP PRN PO MODERATE PAIN (4-6 PAIN SCALE) 03/20/25 22:15 Ondansetron HCl (Zofran) 4 mg Q4HP PRN IV NAUSEA / VOMITING 03/20/25 22:15 Morphine Sulfate 2 mg Q4HPRN PRN IV SEVERE PAIN (7-10 PAIN SCALE) 03/20/25 22:15 03/21/25 14:16 Metronidazole 100 ml @ 100 mls/hr Q8H IV 03/21/25 02:00 03/21/25 11:00 Ceftriaxone Sodium 50 ml @ 100 mls/hr DAILY@09 IV 03/21/25 02:00 03/21/25 10:15 Ketorolac Tromethamine (Toradol Injection) 30 mg Q6HPRN PRN IV for break throuh pain 03/21/25 12:15 03/26/25 12:14 Dextrose/Sodium Chloride 1,000 ml @ 75 mls/hr [id number] IV 03/21/25 13:00 03/21/25 14:15 Review of Systems * General: Negative for fever or chills * GI: Positive for severe abdominal pain, nausea, vomiting, constipation, anorexia * : Denies dysuria * Other systems: Not contributory to GI complaint today Vital Signs Vital Signs Date Time Temp Pulse Resp B/P (MAP) Pulse Ox O2 Delivery O2 Flow Rate FiO2 03/21/25 14:16 70 18 138/89 03/21/25 13:00 98.1 99 98.1 03/21/25 04:37 Room Air* 0 21 Physical Exam * General: Awake, appears uncomfortable * Abdomen: Distended, diffusely tender to palpation, no rebound/guarding, decreased bowel sounds * Rectal: Deferred today * Vitals: Stable * Hydration: Mildly dry mucous membranes Labs/Diagnostic Data Labs Test 03/21/25 05:59 03/21/25 05:49 03/20/25 18:09 Range/Units Plasma/Serum Blood Alcohol < 3.0 <10 mg/dL White Blood Count 8.4 4.4-10.8 10^3/uL Red Blood Count 3.01 L 4.0-5.20 10^6/uL Hemoglobin 11.5 L 12.2-16.2 g/dL Hematocrit 33.0 #L 36.0-46.0 % Mean Corpuscular Volume 109.7 H 80.0-100.0 fL Mean Corpuscular Hemoglobin 38.1 H 28.0-32.0 pg Mean Corpuscular Hemoglobin Concent 34.7 32.0-36.0 g/dL Red Cell Distribution Width 25.4 H 11.8-14.3 % Platelet Count 149 140-450 10^3/uL Mean Platelet Volume 9.9 6.9-10.8 fL Neutrophils (%) (Auto) 64.1 37.0-80.0 % Lymphocytes (%) (Auto) 27.1 10.0-50.0 % Monocytes (%) (Auto) 6.4 0.0-12.0 % Eosinophils (%) (Auto) 1.3 0.0-7.0 % Basophils (%) (Auto) 1.1 0.0-2.0 % Neutrophils # (Auto) 5.4 1.6-8.6 10 ^3/uL Lymphocytes # (Auto) 2.3 0.4-5.4 10 ^3/uL Monocytes # (Auto) 0.5 0-1.3 10 ^3/uL Eosinophils # (Auto) 0.1 0-0.8 10 ^3/uL Basophils # (Auto) 0.1 0-0.2 10 ^3/uL Nucleated Red Blood Cells 0.1 % Platelet Estimate Adequate Anisocytosis (manual) Moderate Macrocytosis Moderate Sodium Level 138 136-145 mmol/L Potassium Level 3.5 3.5-5.1 mmol/L Chloride Level 107 98-107 mmol/L Carbon Dioxide Level 23 20-31 mmol/L Anion Gap 8 5-15 Blood Urea Nitrogen 7 L 9-23 mg/dL Creatinine 0.61 0.550-1.02 mg/dL Glomerular Filtration Rate Calc 113 >90 mL/min BUN/Creatinine Ratio 11.5 10.0-20.0 Serum Glucose 75 74-106 mg/dL Calcium Level 8.2 L 8.7-10.4 mg/dL Total Bilirubin 2.8 H 0.2-1.0 mg/dL Aspartate Amino Transferase (AST) 165 H 13-40 U/L Alanine Aminotransferase (ALT) 72 H 7-40 U/L Alkaline Phosphatase 254 H 46-116 U/L Total Protein 6.2 5.7-8.2 g/dL Albumin 3.4 3.2-4.8 g/dL Vitamin B12 Level 363 211-911 pg/mL Folic Acid 4.08 >5.38 ng/mL Beta HCG, Quantitative 2.9 1.5-4.2 mIU/mL Assessment Assessment 1. Intractable abdominal pain likely functional or due to constipation/SBO hx 2. Constipation likely severe, 7 days since last BM 3. Leukocytosis possible reactive, no source of infection yet identified 4. PO intolerance nausea/vomiting requiring IV hydration and antiemetics 5. Hepatic steatosis incidental on imaging, LFTs mildly elevated Plan/Recommendation GI System * Constipation: * Start MiraLAX (Polyethylene Glycol 3350) 17 grams PO mixed in 8 oz water once daily * Add Lactulose 30 mL PO Q6H PRN for no BM * Order Fleet Enema (sodium phosphate) 118 mL SD once, reassess after 1 hour * Abdominal Pain: * Continue Morphine 2 mg IV Q4H PRN for severe pain * Monitor for signs of obstruction (e.g., vomiting, worsening distention) * Abdominal exam every shift * Rule Out SBO: * NPO * Serial abdominal exams * Continue IV fluids D5 NS with 20 mEq KCl @ 75 mL/hr * Follow-up Gastrografin series if clinically indicated * PO Intolerance / Nausea: * Continue Zofran 4 mg IV Q8H PRN * Strict I/Os * Monitor electrolytes daily * Hepatic Steatosis: * Incidental, likely NAFLD no acute intervention needed inpatient * Recommend outpatient follow-up with GI and LFT monitoring * Avoid hepatotoxic drugs * Encourage diet modification (low-fat, no alcohol) Infectious Disease / Antibiotics * Continue Flagyl 100 mL IV Q8H and Ceftriaxone 1 g IV Q24H (empiric until cultures or cause clarified) Supportive / Prophylactic * PUD prophylaxis: Protonix 40 mg IV daily Plan discussed with: Patient LEONOR WHEELER RESIDENT Mar 21, 2025 16:33
[2025-03-21] MEDS: CYANOCOBALAMIN (B-12) 1000 MCG/1 ML VIAL IM ONE (17:10)
[2025-03-21] MEDS: FOLIC ACID 1 MG in D5W 5% 50 ML INJ ONE (17:10)
[2025-03-21] MEDS: LACTULOSE 20Gm/30ML SOLN PO SCH (17:11)
[2025-03-21] MEDS: FLEET ENEMA(ADULT) 135 ML PR ONE (17:11)
[2025-03-21] MEDS: KETOROLAC TROMETH 30 MG/ML 1ML VIAL IV PRN (18:23)
--- NOTE | 2025-03-21 19:37 | DVHPNRES ---
Progress Note Date Seen: Mar 21, 2025 Resident Creating Document: [facility] INT Medical Necessity Reason Pt with a Central, PICC or Fol: No Subjective Review of Systems Radha Shields is a 45 yo female wit past medical history of SBO and laparotomy (2016). The patient presented to the ED for chief complaint of 4 days of abdominal pain, cramp-like, diffuse, radiating to the flanks and back, associated with nausea and vomit. The patient reports not having a bowel movement in the last 7 days. Yesterday, the abdominal pain increased to 10/10, constant, the patient reports she is not passing gases. The patient reports having similar symptoms due to SBO on 2017. The patient denies fever, chills, abdomen distention, or other symptoms. She reports she tried enema to pass the stool but was unsuccessful. Past Surgical History: Appendectomy, Cholecystectomy, , Other (Laparotomy in 2017 due to SBO) Family History: None Smoke: <1 pack per day ALCOHOL: occassional Drugs: None Lives: with Family ROS: Patient was seen and examined by me at the bedside. Overnight events reviewed. Patient still has constipation and is unable to pass any bowel movement even after Gastrografin. Fleet enema tried, lactulose given. Objective vital signs Vital Sign Date Time Temp Pulse Resp B/P (MAP) Pulse Ox O2 Delivery O2 Flow Rate FiO2 03/21/25 17:00 97.9 73 18 121/88 (99) 99 97.9 03/21/25 04:37 Room Air* 0 21 Total Intake and Output 03/20/25 03/20/25 03/21/25 15:00 23:00 07:00 Intake Total 550 ml Balance 550 ml medications Current Medications Medications Dose Ordered Sig/Belle Route Start Time Stop Time Status Last Admin Dose Admin Acetaminophen/ Hydrocodone Bitart 1 tab Q4HP PRN PO 03/20/25 22:15 Ondansetron HCl 4 mg Q4HP PRN IV 03/20/25 22:15 Morphine Sulfate 2 mg Q4HPRN PRN IV 03/20/25 22:15 03/21/25 14:16 2 MG Metronidazole 100 ml @ 100 mls/hr Q8H IV 03/21/25 02:00 03/21/25 18:16 100 MLS/HR Ceftriaxone Sodium 50 ml @ 100 mls/hr DAILY@09 IV 03/21/25 02:00 03/21/25 10:15 100 MLS/HR Ketorolac Tromethamine 30 mg Q6HPRN PRN IV 03/21/25 12:15 03/26/25 12:14 03/21/25 18:23 30 MG Dextrose/Sodium Chloride 1,000 ml @ 75 mls/hr [id number] IV 03/21/25 13:00 03/21/25 14:15 75 MLS/HR Lactulose 30 ml Q6HR PO 03/21/25 18:00 03/21/25 17:11 30 ML Pantoprazole Sodium 40 mg DAILY IV 03/22/25 10:00 Sodium Biphosphate/ Sodium Phosphate 135 ml DAILY [place] 03/22/25 10:00 Examination General Appearance: Alert, Oriented X3, Cooperative, moderate distress HEENT: Atraumatic, Mucous membr. moist/pink Respiratory: Clear to auscultation, Normal air movement Cardiovascular: Regular rate, Normal S1, Normal S2, No murmurs Abdominal: Other (bowel movements present 2+, flat, not distended, vertical scar on epigastio from prevous surgery. Difussely tender to palpation in all quadrants, guarding.) Extremities: No clubbing, No cyanosis, No edema, Normal pulses, No tenderness/swelling Skin: No rashes Neuro: Normal gait, Normal speech, Strength at 5/5 X4 ext, Normal tone, Sensation intact, Cranial nerves 3-12 NL Psych/Mental Status: Mental status NL, Mood NL laboratory and microbiology Laboratory Tests 03/21/25 05:49 Test 03/21/25 05:49 Range/Units Serum Glucose 75 74-106 mg/dL Labs and/or images reviewed: Labs reviewed by me, Image(s) reviewed by me Problem List/Assessment/Plan Problem List/Assessment/Plan #Intractable abdominal pain, Rule out SBO #Leukocytosis -Abd/Pelv CT scan: No acute abdominal or pelvic findings. Diffuse hepatic steatosis. -UA negative for infection, HCG 2.9. -IV fluids -pain management Morphine 2mg IV -Toradol 30 mg IV 6 hourly -Flagyl IV -Ceftriaxone IV -Gastrografin abdominal series Initial steel placer view of the abdomen and pelvis appears demonstrates no acute process. -Surgical consult #Constipation #PO Intolerance -IV fluids -Zofran 4mg IV -gastro consulted suggested lactulose 30 mL p.o., Fleet enema #Hepatic Steatosis -As seen in CT abdomen pelvis -F/U with PCP as an out patient # transaminitis # hyperbilirubinemia -monitor labs -USG liver -direct bilirubin, pending Diet: NPO DVT prophylaxis: ambulating PUD prophylaxis: Protonic Goals of care discussed with the patient > 35 min. Discussed plan of care with Dr. Green Plan discussed with: Patient, Other (rn) My Orders My Orders Orders - OLAF NAJERA Procedure Category Date Status Time Urinalysis LAB 03/21/25 Logged 08:00 Ketorolac Injection PHA 03/21/25 In Process (Toradol Injection) 12:15 D5w/Sod Chlo 0.9% PHA 03/21/25 In Process (D5w Ns 0.9%) 13:00 Full Liq Diet DIET 03/21/25 Transmitted Dinner Fleet Enema Adult PHA 03/22/25 In Process 10:00 OLAF NAJERA RESIDENT Mar 21, 2025 19:37
--- NOTE | 2025-03-21 20:41 | DVH ---
ULTRASOUND DOPPLER CLINICAL HISTORY: cholestatic liver disease TECHNIQUE: Doppler examination of the abdomen was performed. COMPARISON: None FINDINGS: The liver is enlarged measuring 18 cm. There is increased hepatic echogenicity. There are no masses . There is hepatopetal flow. Prior cholecystectomy. The common bile duct measures 7 mm. The right kidney measures 11.6 cm. No stones or hydronephrosis are seen. IMPRESSION: 1. Hepatomegaly and increased echogenicity of the liver which may reflect hepatic steatosis or intrin sic hepatocellular disease.
[2025-03-22] VITALS (8 sets, daily range): BP systolic 117–134; BP diastolic 67–90; PULSE 54–74; RESP 16–19; TEMP 97–97.9; O2SAT 96–99
[2025-03-22] MEDS: HYDROcodone-ACET 5/325MG TAB PO PRN (00:48)
[2025-03-22 06:20] LABS: Hematocrit 32.6 % (36.0-46.0); Hemoglobin 11.2 g/dL (12.2-16.2); Mean Corpuscular Hemoglobin 37.9 pg (28.0-32.0); Mean Corpuscular Volume 110.5 fL (80.0-100.0); Nucleated Red Blood Cells % 0.1 %
[2025-03-22 06:28] LABS: Alanine Aminotransferase 83 U/L (7-40); Albumin 3.2 g/dL (3.2-4.8); Alkaline Phosphatase 247 U/L (46-116); Anion Gap 4 (5-15); BUN/Creatinine Ratio 9.0 (10.0-20.0); Bilirubin, Direct 1.5 mg/dL (<0.3); Bilirubin, Total 2.3 mg/dL (0.2-1.0); Blood Urea Nitrogen 6 mg/dL (9-23); Calcium 8.1 mg/dL (8.7-10.4); Carbon Dioxide 26 mmol/L (20-31); Chloride 110 mmol/L (98-107); Glucose 81 mg/dL (74-106); Potassium 3.7 mmol/L (3.5-5.1); Sodium 140 mmol/L (136-145); Total Protein 5.7 g/dL (5.7-8.2)
[2025-03-22] MEDS: CYANOCOBALAMIN (B-12) 1000 MCG/1 ML VIAL IM ONE (07:24)
[2025-03-22] MEDS ORDERED: DOX100T PO (09:42)
[2025-03-22] MEDS ORDERED: AUG875T PO (09:42)
[2025-03-22] MEDS: FLEET ENEMA(ADULT) 135 ML PR SCH (09:54)
[2025-03-22] MEDS: PANTOPRAZOLE 40 MG/10 ML VIAL INJ IV SCH (09:54)
[2025-03-22] MEDS: FOLIC ACID 1 MG in D5W 5% 50 ML INJ ONE (10:00)
[2025-03-22] MEDS: DOCUSATE SOD 100 MG CAP PO SCH (10:29)
[2025-03-22] MEDS: LACTULOSE 20Gm/30ML SOLN PO SCH (10:29)
[2025-03-22] MEDS: DICYCLOMINE HCL 10 MG CAP PO SCH (10:29)
--- NOTE | 2025-03-22 10:31 | DVH ---
Date: 03/22/2025 09:37 AM Examination: XY KUB ABDOMEN SINGLE VIEW History: f/u Comparison: XY SMALL BOWEL SERIES-W GASTROGRA on DOS: 03/21/25, CT CT AB PEL WO CON-NO ORAL OR IV on DO S: 03/20/25, CT CT AB PEL WO CON-NO ORAL OR IV on DOS: 02/08/23 TECHNIQUE: Frontal views of the abdomen was obtained. FINDINGS: Bowel gas pattern is unremarkable. The lung bases are unremarkable. No acute osseous abnormality identified. IUD is pelvis. 2 metallic densities. LUQ surgical clips IMPRESSION: Nonobstructive bowel gas pattern.
--- NOTE | 2025-03-22 11:18 | DVHPN2 ---
Progress Note Date Seen: Mar 22, 2025 Resident Creating Document: LEONOR WHEELER RESIDENT Has the PT tested + for MRSA If YES, has PT been informed?: No Medical Necessity Reason Pt with a Central, PICC or Fol: No Subjective Review of Systems This is a 45-year-old female with a history of small bowel obstruction (SBO) and laparotomy (2017), cholecystectomy, and appendectomy, presenting with 4 days of diffuse, cramping abdominal pain radiating to the flanks and back, associated with nausea, vomiting, and absence of flatus or bowel movement. Pain severity has increased to 10/10, constant. She reports last bowel movement 7 days ago and current PO intolerance. She had similar symptoms during her prior SBO episode in 2017. She denies fever, chills, dysuria, or recent dietary changes. Todays Progress Summary Abdominal pain has improved, although still rated as 8-10, and described as diffuse and cramping in nature. Bloating completely resolved. Patient had 2 bowel movements this morning. Tolerating full liquid diet without nausea or vomiting. No new episodes of emesis or worsening distention. Patient is now clinically more stable and able to maintain oral intake. No signs of complete obstruction. Ongoing hepatic workup due to elevated LFTs and bilirubin. Today's brief summary Liver function markers remain elevated, hepatic steatosis confirmed on imaging. New labs total and bilirubin elevated, AST ALT elevated, lipase normal. Hepatic ultrasound today shows hepatomegaly and increased echogenicity. KUB shows nonobstructive bowel gas pattern. Further hepatic workup initiated today which includes hepatitis panel, ferritin, CIRA, MRCP, CMP. Two spontaneous BMs today after laxatives/enema regimen. Objective vital signs Vital Sign Date Time Temp Pulse Resp B/P (MAP) Pulse Ox O2 Delivery O2 Flow Rate FiO2 03/22/25 10:24 62 17 128/81 03/22/25 08:52 97.9 96 97.9 03/21/25 20:00 Room Air* 0 21 Total Intake and Output 03/21/25 03/21/25 03/22/25 15:00 23:00 07:00 Intake Total 150 ml 350.2 ml 1280 ml Balance 150 ml 350.2 ml 1280 ml medications Current Medications Medications Dose Ordered Sig/Belle Route Start Time Stop Time Status Last Admin Dose Admin Acetaminophen/ Hydrocodone Bitart 1 tab Q4HP PRN PO 03/20/25 22:15 03/22/25 07:14 1 TAB Ondansetron HCl 4 mg Q4HP PRN IV 03/20/25 22:15 Morphine Sulfate 2 mg Q4HPRN PRN IV 03/20/25 22:15 03/22/25 09:54 2 MG Metronidazole 100 ml @ 100 mls/hr Q8H IV 03/21/25 02:00 03/22/25 09:54 100 MLS/HR Ceftriaxone Sodium 50 ml @ 100 mls/hr DAILY@09 IV 03/21/25 02:00 03/22/25 09:02 100 MLS/HR Ketorolac Tromethamine 30 mg Q6HPRN PRN IV 03/21/25 12:15 03/26/25 12:14 03/21/25 18:23 30 MG Dextrose/Sodium Chloride 1,000 ml @ 75 mls/hr [id number] IV 03/21/25 13:00 03/22/25 02:20 75 MLS/HR Pantoprazole Sodium 40 mg DAILY IV 03/22/25 10:00 03/22/25 09:54 40 MG Sodium Biphosphate/ Sodium Phosphate 135 ml DAILY [place] 03/22/25 10:00 03/22/25 09:54 135 ML Folic Acid 1 mg DAILY PO 03/23/25 10:00 Dicyclomine HCl 10 mg BID PO 03/22/25 10:00 03/22/25 10:29 10 MG Lactulose 30 ml DAILY PO 03/22/25 10:00 03/22/25 10:29 30 ML Docusate Sodium 100 mg BID PO 03/22/25 10:00 03/22/25 10:29 100 MG Examination General-alert, oriented, no distress. Abdomen-soft, nondistended, diffuse tenderness on deep palpation, no rebound or guarding, bowel sounds present. Vitals-stable Nutrition tolerating full liquid diet orally laboratory and microbiology Laboratory Tests 03/22/25 05:33 Test 03/22/25 05:33 Range/Units Serum Glucose 81 74-106 mg/dL Microbiology Date/Time Source Procedure Growth Status 03/21/25 05:59 Blood Blood Culture - Preliminary NO GROWTH AFTER 24 HOURS OF INCUBATION. Resulted Problem List/Assessment/Plan Problem List/Assessment/Plan Assessment 1. Intractable abdominal pain likely functional or due to constipation/SBO hx/improving, likely secondary to constipation and posteriorly state. SBO ruled out via CT/KUB. 2. Constipation now resolving, patient had 2 bowel movements today. 3. Leukocytosis possible reactive, no source of infection yet identified 4. PO intolerance NPO advanced to full liquids because improved p.o. tolerance 5. Hepatic steatosis incidental on imaging, LFTs mildly elevated confirmed on imaging ongoing evaluation for underlying hepatocellular disease 6. Elevated transaminases and cholestasis-AST ALT and alkaline phosphatase are elevated, total bilirubin is elevated differentials include NAFLD/Quinones, alcohol hepatitis, autoimmune, viral hepatitis. Plan/Recommendation GI System Continue full liquid diet, monitor for tolerance. * Constipation: * Start MiraLAX (Polyethylene Glycol 3350) 17 grams PO mixed in 8 oz water once daily * Add Lactulose 30 mL PO Q6H PRN for no BM * Order Fleet Enema (sodium phosphate) 118 mL VA once, reassess after 1 hour * Abdominal Pain: * Continue Morphine 2 mg IV Q4H PRN for severe pain * Monitor for signs of obstruction (e.g., vomiting, worsening distention) * Abdominal exam every shift * Rule Out SBO: * NPO * Serial abdominal exams * Continue IV fluids D5 NS with 20 mEq KCl @ 75 mL/hr * Follow-up Gastrografin series if clinically indicated * PO Intolerance / Nausea: * Continue Zofran 4 mg IV Q8H PRN * Strict I/Os * Monitor electrolytes daily * Hepatic Steatosis: * Incidental, likely NAFLD or alcohol liver disease/autoimmune hepatitis, acute viral hepatitis, drug-induced liver injury-hepatic workup ordered today acute hepatitis panel, comprehensive metabolic panel, comprehensive hepatic panel, ferritin, CIRA, MRCP * Avoid hepatotoxic drugs * Encourage diet modification (low-fat, no alcohol) Infectious Disease / Antibiotics * Continue Flagyl 100 mL IV Q8H and Ceftriaxone 1 g IV Q24H (empiric until cultures or cause clarified) Supportive / Prophylactic * PUD prophylaxis: Protonix 40 mg IV daily Whole findings plan of care were discussed with the attending physician Dr. Bolton and she agreed upon the plan and also discuss the same with the patient and RN and the patient agreed upon the goal of care. Plan discussed with: Patient My Orders My Orders Orders - LEONOR WHEELER RESIDENT Procedure Category Date Status Time Pantoprazole PHA 03/22/25 In Process (Protonix) 10:00 LEONOR WHEELER RESIDENT Mar 22, 2025 11:18
--- NOTE | 2025-03-22 12:48 | DVH ---
PROCEDURE: MRI MRCP MRI Indication: elevated liver tests COMPARISON: 03/21/2025, 03/20/2025 TECHNIQUE: Multiplanar multisequence images of the abdomen are obtianed per MRCP protocol. FINDINGS: Hepatomegaly, hepatic steatosis. The common bile duct is dilated to 10 mm.. Pancreatic duct normal in caliber measuring 3 mm Adrenal glands unremarkable. Kidneys demonstrate no hydronephrosis. Spleen, pancreas unremarkable. C holecystectomy. Postsurgical changes stomach/gastrojejunostomy. Tiny bilateral pleural effusions. IMPRESSION: Hepatic steatosis. Hepatomegaly. Cholecystectomy. Dilated common bile duct measuring 10 mm which could be secondary to underlying cholecystectomy / res ervoir effect. Correlate clinically to exclude obstructing biliary / ampullary etiology. Postsurgical changes stomach/gastrojejunostomy.
--- NOTE | 2025-03-22 17:15 | DVHPNRES ---
Progress Note Date Seen: Mar 22, 2025 Resident Creating Document: OLAF NAJERA RESIDENT Has the PT tested + for MRSA If YES, has PT been informed?: No Medical Necessity Reason Pt with a Central, PICC or Fol: No Subjective Review of Systems Radha Shields is a 45 yo female wit past medical history of SBO and laparotomy (2017). The patient presented to the ED for chief complaint of 4 days of abdominal pain, cramp-like, diffuse, radiating to the flanks and back, associated with nausea and vomit. The patient reports not having a bowel movement in the last 7 days. Yesterday, the abdominal pain increased to 10/10, constant, the patient reports she is not passing gases. The patient reports having similar symptoms due to SBO on 2017. The patient denies fever, chills, abdomen distention, or other symptoms. She reports she tried enema to pass the stool but was unsuccessful. Past Surgical History: Appendectomy, Cholecystectomy, , Other (Laparotomy in 2017 due to SBO) Family History: None Smoke: <1 pack per day ALCOHOL: occassional Drugs: None Lives: with Family ROS: Patient was seen and examined by me at the bedside. Overnight events reviewed. Patient still has constipation and is unable to pass any bowel movement even after Gastrografin. Fleet enema tried, lactulose given. 03/22/25 Patient was seen and examined by me at the bedside. Patient had 2 bowel movements yesterday at 12:00 a.m. and 4:00 a.m.. Patient still complains of cramping abdominal pain even after evacuating bowels. Decreasing her lactulose dose from BD to OD today. We have given her docusate 100 mg BD, Fleet enema will be continued. B12 and folic acid was repleted. Usg liver showed hepatomegaly and increased echogenicity of the liver which may reflect hepatic steatosis or intrinsic hepatocellular disease. total bilirubin was increased. We ordered-direct bilirubin, inc -1.5,-Lactic acid1.2,-LDH, haptoglobin,, pending,retic-1.41 normal, GGT-568 (high). Objective vital signs Vital Sign Date Time Temp Pulse Resp B/P (MAP) Pulse Ox O2 Delivery O2 Flow Rate FiO2 03/22/25 17:08 62 18 128/70 03/22/25 13:00 97.8 99 97.8 03/22/25 08:00 Room Air* 0 21 Total Intake and Output 03/21/25 03/21/25 03/22/25 15:00 23:00 07:00 Intake Total 150 ml 350.2 ml 1280 ml Balance 150 ml 350.2 ml 1280 ml medications Current Medications Medications Dose Ordered Sig/Belle Route Start Time Stop Time Status Last Admin Dose Admin Acetaminophen/ Hydrocodone Bitart 1 tab Q4HP PRN PO 03/20/25 22:15 03/22/25 14:13 1 TAB Ondansetron HCl 4 mg Q4HP PRN IV 03/20/25 22:15 Morphine Sulfate 2 mg Q4HPRN PRN IV 03/20/25 22:15 03/22/25 17:08 2 MG Metronidazole 100 ml @ 100 mls/hr Q8H IV 03/21/25 02:00 03/22/25 17:04 100 MLS/HR Ceftriaxone Sodium 50 ml @ 100 mls/hr DAILY@09 IV 03/21/25 02:00 03/22/25 09:02 100 MLS/HR Ketorolac Tromethamine 30 mg Q6HPRN PRN IV 03/21/25 12:15 03/26/25 12:14 03/21/25 18:23 30 MG Dextrose/Sodium Chloride 1,000 ml @ 75 mls/hr [id number] IV 03/21/25 13:00 03/22/25 15:40 75 MLS/HR Pantoprazole Sodium 40 mg DAILY IV 03/22/25 10:00 03/22/25 09:54 40 MG Sodium Biphosphate/ Sodium Phosphate 135 ml DAILY MD 03/22/25 10:00 03/22/25 09:54 135 ML Folic Acid 1 mg DAILY PO 03/23/25 10:00 Dicyclomine HCl 10 mg BID PO 03/22/25 10:00 03/22/25 10:29 10 MG Lactulose 30 ml DAILY PO 03/22/25 10:00 03/22/25 10:29 30 ML Docusate Sodium 100 mg BID PO 03/22/25 10:00 03/22/25 10:29 100 MG Examination General Appearance: Alert, Oriented X3, Cooperative, moderate distress HEENT: Atraumatic, Mucous membr. moist/pink Respiratory: Clear to auscultation, Normal air movement Cardiovascular: Regular rate, Normal S1, Normal S2, No murmurs Abdominal: Other (bowel movements present 2+, flat, not distended, vertical scar on epigastio from prevous surgery. Difussely tender to palpation in all quadrants, guarding.) Extremities: No clubbing, No cyanosis, No edema, Normal pulses, No tenderness/swelling Skin: No rashes Neuro: Normal gait, Normal speech, Strength at 5/5 X4 ext, Normal tone, Sensation intact, Cranial nerves 3-12 NL Psych/Mental Status: Mental status NL, Mood NL laboratory and microbiology Laboratory Tests 03/22/25 05:33 Test 03/22/25 05:33 Range/Units Serum Glucose 81 74-106 mg/dL Microbiology Date/Time Source Procedure Growth Status 03/21/25 05:59 Blood Blood Culture - Preliminary NO GROWTH AFTER 24 HOURS OF INCUBATION. Resulted Labs and/or images reviewed: Labs reviewed by me, Image(s) reviewed by me Problem List/Assessment/Plan Problem List/Assessment/Plan #Intractable abdominal pain, Rule out SBO #Leukocytosis -Abd/Pelv CT scan: No acute abdominal or pelvic findings. Diffuse hepatic steatosis. -UA negative for infection, HCG 2.9. -IV fluids -pain management Morphine 2mg IV -Toradol 30 mg IV 6 hourly -Flagyl IV -Ceftriaxone IV -Gastrografin abdominal series Initial equity sales assistant view of the abdomen and pelvis appears demonstrates no acute process. -Surgical consult #Constipation #PO Intolerance -IV fluids -Zofran 4mg IV -gastro consulted suggested lactulose 30 mL p.o., Fleet enema continued -Lactulose from BT to OD today on 03/22/2025 -Docusate 100 mg BD continued #Hepatic Steatosis -As seen in CT abdomen pelvis -F/U with PCP as an out patient -USG liver shows hepatomegaly and increased echogenicity of the liver which may reflect hepatic steatosis or intrinsic hepatocellular disease. # transaminitis # hyperbilirubinemia -monitor labs -direct bilirubin, inc -1.5 -Lactic acid 1.2 -LDH, haptoglobin,, pending -retic-1.41 normal - AST to ALT ratio greater than 2 -GGT-568 (high) # vitamin B12 deficiency - repleted # folate deficiency - repleted Diet: NPO DVT prophylaxis: ambulating PUD prophylaxis: Protonic Goals of care discussed with the patient > 35 min. Discussed plan of care with Dr. Green Plan discussed with: Patient, Other (rn) My Orders My Orders Orders - OLAF NAJERA Procedure Category Date Status Time Full Liq Diet DIET 03/21/25 Transmitted Dinner Fleet Enema Adult PHA 03/22/25 In Process 10:00 LIVER US 03/21/25 Resulted 19:40 Folic Acid Tablet PHA 03/23/25 In Process 10:00 Haptoglobin LAB 03/22/25 In Process 09:37 Docusate Sodium PHA 03/22/25 In Process Capsule (Colace 10:00 Communication Order ORDERS 03/22/25 Transmitted 09:47 OLAF NAJERA RESIDENT Mar 22, 2025 17:15
[2025-03-23] VITALS (8 sets, daily range): BP systolic 120–135; BP diastolic 77–89; PULSE 68–77; RESP 17–24; TEMP 96.8–98.1; O2SAT 97–99
[2025-03-23 07:33] LABS: Hematocrit 31.5 % (36.0-46.0); Hemoglobin 10.9 g/dL (12.2-16.2); Mean Corpuscular Hemoglobin 38.4 pg (28.0-32.0); Mean Corpuscular Volume 110.3 fL (80.0-100.0); Nucleated Red Blood Cells % 0.1 %
[2025-03-23 07:35] LABS: Anion Gap 5 (5-15); Carbon Dioxide 23 mmol/L (20-31); Glucose 79 mg/dL (74-106); Sodium 138 mmol/L (136-145)
[2025-03-23 07:36] LABS: Bilirubin, Total 1.2 mg/dL (0.2-1.0)
[2025-03-23 07:46] LABS: Alanine Aminotransferase 64 U/L (7-40); Albumin 3.1 g/dL (3.2-4.8); Alkaline Phosphatase 218 U/L (46-116); BUN/Creatinine Ratio 8.9 (10.0-20.0); Blood Urea Nitrogen < 5 mg/dL (9-23); Calcium 7.8 mg/dL (8.7-10.4); Chloride 110 mmol/L (98-107); Potassium 3.3 mmol/L (3.5-5.1); Total Protein 5.5 g/dL (5.7-8.2)
[2025-03-23] MEDS: FOLIC ACID 1 MG TAB PO SCH (09:07)
[2025-03-23] MEDS ORDERED: POTASSIUM CHL 20MEQ/100ML 100 ML IV SCH (11:45)
[2025-03-23 13:48] LABS: Hepatitis A Total Antibody Positive (Negative); Hepatitis B Surface Antigen Negative (Negative); Hepatitis C Antibody Negative (Negative)
[2025-03-23] MEDS: DICYCLOMINE HCL 10 MG CAP PO ONE (14:03)
[2025-03-23] MEDS: POTASSIUM CHL 20MEQ/100ML 100 ML IV SCH (14:03)
--- NOTE | 2025-03-23 16:27 | DVHPN2 ---
Progress Note Date Seen: Mar 23, 2025 Resident Creating Document: LEONOR WHEELER RESIDENT Has the PT tested + for MRSA If YES, has PT been informed?: No Medical Necessity Reason Pt with a Central, PICC or Fol: No Subjective Review of Systems This is a 45-year-old female with a history of SBO with laparotomy in 2017, cholecystectomy, and appendectomy, initially presented with a diffuse abdominal pain, nausea, vomiting and constipation no bowel movement for 7 days. Today- Pain improved significantly compared to previous days, residual mild discomfort only. Bowel function the patient had 2 spontaneous bowel movements today. GI symptoms no nausea or vomiting. Diet tolerating full liquid diet without issue, diet advanced to soft diet today. The patient is cleared for discharge from GI standpoint if she is tolerating the diet advancement to soft diet today. Brief summary of today's progress, treatment, labs, imaging and plan Symptoms pain improved, no emesis, normal bowel function restored. Labs revealed CIRA profile negative, hepatitis serologies negative, iron studies normal, hemoglobin stable at 10.9, LFTs down trending. Imaging revealed MRCP revealed hepatic steatosis, hepatomegaly, post cholecystectomy changes, dilated common bile duct likely post cholecystectomy. KUB negative, nonobstructive bowel gas pattern. The plan is to continue soft diet, monitor overnight, anticipate discharge tomorrow with outpatient hepatology and GI follow-up for liver management. Objective vital signs Vital Sign Date Time Temp Pulse Resp B/P (MAP) Pulse Ox O2 Delivery O2 Flow Rate FiO2 03/23/25 13:17 96.8 73 19 135/85 (102) 98 96.8 03/22/25 20:00 Room Air* 0 21 Total Intake and Output 03/22/25 03/22/25 03/23/25 15:00 23:00 07:00 Intake Total 1100 ml 700 ml Output Total 100 ml Balance 1000 ml 700 ml medications Current Medications Medications Dose Ordered Sig/Belle Route Start Time Stop Time Status Last Admin Dose Admin Acetaminophen/ Hydrocodone Bitart 1 tab Q4HP PRN PO 03/20/25 22:15 03/23/25 10:14 1 TAB Ondansetron HCl 4 mg Q4HP PRN IV 03/20/25 22:15 Morphine Sulfate 2 mg Q4HPRN PRN IV 03/20/25 22:15 03/23/25 02:28 2 MG Metronidazole 100 ml @ 100 mls/hr Q8H IV 03/21/25 02:00 03/23/25 09:06 100 MLS/HR Ceftriaxone Sodium 50 ml @ 100 mls/hr DAILY@09 IV 03/21/25 02:00 03/23/25 09:06 100 MLS/HR Ketorolac Tromethamine 30 mg Q6HPRN PRN IV 03/21/25 12:15 03/26/25 12:14 03/21/25 18:23 30 MG Dextrose/Sodium Chloride 1,000 ml @ 75 mls/hr [id number] IV 03/21/25 13:00 03/23/25 05:01 75 MLS/HR Pantoprazole Sodium 40 mg DAILY IV 03/22/25 10:00 03/23/25 09:06 40 MG Sodium Biphosphate/ Sodium Phosphate 135 ml DAILY NH 03/22/25 10:00 03/23/25 09:07 135 ML Folic Acid 1 mg DAILY PO 03/23/25 10:00 03/23/25 09:07 1 MG Dicyclomine HCl 10 mg BID PO 03/22/25 10:00 03/23/25 09:07 10 MG Lactulose 30 ml DAILY PO 03/22/25 10:00 03/23/25 09:06 30 ML Docusate Sodium 100 mg BID PO 03/22/25 10:00 03/23/25 09:07 100 MG Amitriptyline HCl 10 mg HS PO 03/23/25 22:00 Potassium Chloride 100 ml @ 50 mls/hr Q2H IV 03/23/25 14:00 03/23/25 17:59 03/23/25 16:23 50 MLS/HR laboratory and microbiology Laboratory Tests 03/23/25 06:45 Test 03/23/25 06:45 Range/Units Serum Glucose 79 74-106 mg/dL Microbiology Date/Time Source Procedure Growth Status 03/21/25 05:59 Blood Blood Culture - Preliminary NO GROWTH AFTER 48 HOURS OF INCUBATION. Resulted Problem List/Assessment/Plan Problem List/Assessment/Plan Assessment 1. Intractable abdominal pain improved, likely secondary to constipation/ileus, now resolved 2. Constipation now resolving, patient had 2 bowel movements today. 3. Leukocytosis possible reactive, no source of infection yet identified 4. PO intolerance NPO advanced to full liquids because improved p.o. tolerance 5. Hepatic steatosis confirmed on imaging, LFTs improving 6. Elevated transaminases and cholestasis-AST ALT and alkaline phosphatase are elevated, total bilirubin is elevated likely NAFLD related. Plan/Recommendation GI System Advanced to soft diet, monitor tolerance overnight. Constipation: * Start MiraLAX (Polyethylene Glycol 3350) 17 grams PO mixed in 8 oz water once daily * Add Lactulose 30 mL PO Q6H PRN for no BM * Order Fleet Enema (sodium phosphate) 118 mL NH once, reassess after 1 hour * Abdominal Pain: * Continue Morphine 2 mg IV Q4H PRN for severe pain * Monitor for signs of obstruction (e.g., vomiting, worsening distention) * Abdominal exam every shift * PO Intolerance / Nausea: * Continue Zofran 4 mg IV Q8H PRN * Strict I/Os * Monitor electrolytes daily * Hepatic Steatosis: * Incidental, likely NAFLD Outpatient hepatology follow-up for FibroScan and continued LFT monitoring. Continue to avoid hepatotoxic medications and alcohol. Outpatient GI appointment in 3-4 weeks * Avoid hepatotoxic drugs * Encourage diet modification (low-fat, no alcohol) Infectious Disease / Antibiotics * Continue Flagyl 100 mL IV Q8H and Ceftriaxone 1 g IV Q24H (empiric until cultures or cause clarified) Supportive / Prophylactic * PUD prophylaxis: Protonix 40 mg IV daily Whole findings plan of care were discussed with the attending physician Dr. Bolton and she agreed upon the plan and also discuss the same with the patient and RN and the patient agreed upon the goal of care. Plan discussed with: Patient SUMMERPAULYDUSTY HAMILTON RESIDENT Mar 23, 2025 16:27
--- NOTE | 2025-03-23 18:24 | DVHDSRES ---
Discharge Summary Date of Admission Resident Creating Document: OLAF NAJERA RESIDENT Mar 20, 2025 at 22:12 Date of Discharge: Mar 23, 2025 Admitting Diagnosis #Sepsis secondary to gastrogenteritis, likely infectious etiology Labs/Diagnostic Data: Laboratory Results Test 03/23/25 06:45 03/22/25 11:44 03/22/25 09:33 03/22/25 05:33 White Blood Count 6.6 10^3/uL (4.4-10.8) Red Blood Count 2.85 10^6/uL (4.0-5.20) Hemoglobin 10.9 g/dL (12.2-16.2) Hematocrit 31.5 % (36.0-46.0) Mean Corpuscular Volume 110.3 fL (80.0-100.0) Mean Corpuscular Hemoglobin 38.4 pg (28.0-32.0) Mean Corpuscular Hemoglobin Concent 34.8 g/dL (32.0-36.0) Red Cell Distribution Width 24.2 % (11.8-14.3) Platelet Count 157 10^3/uL (140-450) Mean Platelet Volume 10.2 fL (6.9-10.8) Neutrophils (%) (Auto) 57.0 % (37.0-80.0) Lymphocytes (%) (Auto) 32.9 % (10.0-50.0) Monocytes (%) (Auto) 7.3 % (0.0-12.0) Eosinophils (%) (Auto) 2.3 % (0.0-7.0) Basophils (%) (Auto) 0.5 % (0.0-2.0) Neutrophils # (Auto) 3.8 10 ^3/uL (1.6-8.6) Lymphocytes # (Auto) 2.2 10 ^3/uL (0.4-5.4) Monocytes # (Auto) 0.5 10 ^3/uL (0-1.3) Eosinophils # (Auto) 0.2 10 ^3/uL (0-0.8) Basophils # (Auto) 0 10 ^3/uL (0-0.2) Nucleated Red Blood Cells 0.1 % Sodium Level 138 mmol/L (136-145) Potassium Level 3.3 mmol/L (3.5-5.1) Chloride Level 110 mmol/L (98-107) Carbon Dioxide Level 23 mmol/L (20-31) Anion Gap 5 (5-15) Blood Urea Nitrogen < 5 mg/dL (9-23) Creatinine 0.56 mg/dL (0.550-1.02) Glomerular Filtration Rate Calc 115 mL/min (>90) BUN/Creatinine Ratio 8.9 (10.0-20.0) Serum Glucose 79 mg/dL (74-106) Calcium Level 7.8 mg/dL (8.7-10.4) Total Bilirubin 1.2 mg/dL (0.2-1.0) Aspartate Amino Transferase (AST) 109 U/L (13-40) Alanine Aminotransferase (ALT) 64 U/L (7-40) Alkaline Phosphatase 218 U/L (46-116) Total Protein 5.5 g/dL (5.7-8.2) Albumin 3.1 g/dL (3.2-4.8) Reticulocyte Count (auto) 1.41 % (0.5-1.5) Haptoglobin 85 mg/dL (42-296) Lactic Acid Level 1.2 mmol/L (0.4-2.0) Ferritin 85.6 ng/mL (10-291) Lactate Dehydrogenase 223 U/L (120-246) Anti-Nuclear Antibody Screen Negative (Negative) Hepatitis A IgM Antibody Negative Hepatitis A Antibody Total Positive (Negative) Hepatitis B Surface Antigen Negative (Negative) Hepatitis B Surface Antibody Negative (Negative) Hepatitis B Core Total Antibody Negative (Negative) Hepatitis B Core IgM Antibody Negative (Negative) Hepatitis C Antibody Negative (Negative) Gamma Glutamyl Transpeptidase 568 U/L (<38) Direct Bilirubin 1.5 mg/dL (<0.3) Lipase 29 U/L (12-53) Test 03/21/25 22:53 03/21/25 05:59 03/21/25 05:49 03/20/25 18:09 POC Glucose 90 mg/dl (70-106) Plasma/Serum Blood Alcohol < 3.0 mg/dL (<10) Platelet Estimate Adequate Anisocytosis (manual) Moderate Macrocytosis Moderate Vitamin B12 Level 363 pg/mL (211-911) Folic Acid 4.08 ng/mL (>5.38) Beta HCG, Quantitative 2.9 mIU/mL (1.5-4.2) Other Laboratory Tests 03/23/25 06:45 Brief Hx & Hospital Course: Radha Shields is a 45 yo female wit past medical history of SBO and laparotomy (2017). The patient presented to the ED for chief complaint of 4 days of abdominal pain, cramp-like, diffuse, radiating to the flanks and back, associated with nausea and vomit. The patient reports not having a bowel movement in the last 7 days. Yesterday, the abdominal pain increased to 10/10, constant, the patient reports she is not passing gases. The patient reports having similar symptoms due to SBO on 2017. The patient denies fever, chills, abdomen distention, or other symptoms. She reports she tried enema to pass the stool but was unsuccessful. Past Surgical History: Appendectomy, Cholecystectomy, , Other (Laparotomy in 2017 due to SBO) Family History: None Smoke: <1 pack per day ALCOHOL: occassional Drugs: None Lives: with Family Brief history of hospitalization: Patient came in for intractable abdominal pain. On presentation to the hospital, She had sepsis based on her wbc and tachycardia with gastroenteritis. We started her on Flagyl and ceftriaxone intravenously. Abdomen pelvis CT scan showed no acute abdominal or pelvic findings. Diffuse hepatic steatosis was seen. Blood reports showed leukocytosis. Urine analysis was negative for infection. We started the patient on IV fluids and managed her pain with morphine 2 mg IV. We also added Toradol 30 mg IV 6 hourly. Gastrografin abdominal series was done which showed no acute process. SBO was ruled out. Patient had not still pass stool. For constipation and p.o. intolerance we also gave her Zofran 4 mg IV. Gastro consult suggested lactulose 30 mL per orally and Fleet enema. Patient did pass some stool which was watery after that and we continued the lactulose, added docusate and continued the Fleet enema after which she had 4-5 bowel movements. For patient's hepatic steatosis pre recommend that she follows up with the PCP outpatient. Labs also showed transaminitis, hyperbilirubinemia and we monitored them. A liver USG was done which showed Hepatomegaly and increased echogenicity of the liver which may reflect hepatic steatosis or intrinsic hepatocellular disease. direct bilirubin was sent which was slightly raised as well. We then sent a GGT level which was raised. MRCP was done which again showed hepatic steatosis, hepatomegaly, dilated common bile duct measuring 10 mm which could be secondary to underlying cholecystectomy / reservoir effect. Patient's abdominal pain has improved and patient is able to tolerate soft liquid diet And stable for discharge. We have counseled the patient to eat pureed food and increase diet as tolerated, we are discharging her on docusate daily for 30 days, Bentyl PRN, amitriptyline 10 mg every night, MiraLAX for constipation PRN. Patient has communicated understanding and has agreed with the discharge plan. General Appearance: Alert, Oriented X3, Cooperative, moderate distress HEENT: Atraumatic, Mucous membr. moist/pink Respiratory: Clear to auscultation, Normal air movement Cardiovascular: Regular rate, Normal S1, Normal S2, No murmurs Abdominal: Other (bowel movements present 2+, flat, not distended, vertical scar on epigastio from prevous surgery. mildly tender to palpation in all quadrants, guarding.) Extremities: No clubbing, No cyanosis, No edema, Normal pulses, No tenderness/swelling Skin: No rashes Neuro: Normal gait, Normal speech, Strength at 5/5 X4 ext, Normal tone, Sensation intact, Cranial nerves 3-12 NL Psych/Mental Status: Mental status NL, Mood NL Instructions Follow up with PCP in 10 days Follow up at discharge clinic within 1 week Gastroenterology outpatient follow up Eat pureed food for at least a week and increase diet as tolerated Take docusate 100 mg twice a day daily Take MiraLax 17 g powder as required for constipation Take Bentyl as needed Take amitriptyline 10 mg at night for 30 days Operations or Procedures MRCP - MRCP MRI REASON: elevated liver tests IMPRESSION: Hepatic steatosis. Hepatomegaly. Cholecystectomy. Dilated common bile duct measuring 10 mm which could be secondary to underlying cholecystectomy / reservoir effect. Correlate clinically to exclude obstructing biliary / ampullary etiology. Postsurgical changes stomach/gastrojejunostomy. KUB - KUB ABDOMEN SINGLE VIEW IMPRESSION: Nonobstructive bowel gas pattern. LIVUS - LIVER REASON: cholestatic liver disease ORDER NUMBER(s): [id number], ACCESSION NUMBER(s): [id number] ULTRASOUND DOPPLER CLINICAL HISTORY: cholestatic liver disease IMPRESSION: Hepatomegaly and increased echogenicity of the liver which may reflect hepatic steatosis or intrinsic hepatocellular disease. SMBG - SMALL BOWEL SERIES-W GASTROGRA REASON: Intractable abdominal Pain FINDINGS/IMPRESSION: Initial die assembler view of the abdomen and pelvis appears demonstrates no acute process. Contrast is identified within the colon by 45 minutes. This represents a normal small bowel transit time. CT CT AB PEL WO CON-NO ORAL OR IV History: pain IMPRESSION: No acute abdominal or pelvic findings. Diffuse hepatic steatosis. Radiation optimization: All CT scans at this facility use at least one of these dose optimization techniques: Automated exposure control mA and/or kV adjustment per patient size (includes targeted exams where dose is matched to clinical indication) or iterative reconstruction. 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 #obesity Discharge Disposition: Home Discharge Instruct/Medications Diet: Consistent carbohydrate, Cardiac 2g Na,low cholest Activity: No Restrictions, As Tolerated Follow Up/Referral: Follow up with PCP in 10 days Follow up at discharge clinic within 1 week Gastroenterology outpatient follow up Medications: Amitriptyline 10 mg per orally at night daily for 30 days Docusate 100 mg orally twice a day for 30 days Resume all home medicatio Scheduled Amoxicillin & Pot Clavulanate (Augmentin Tablet), 875 MG PO BID Doxycycline Monohydrate (Doxycycline Monohydrate), 100 MG PO BID Nitrofurantoin Monohydrate Mac (Macrobid), 100 MG PO BID Discharge Statement: "Patient was advised to return to the ER or call 911 if any headaches, dizziness, shortness of breath, chest pain, abdominal pain, bleeding, fevers, or worsening of medical condition. Patient was counseled about treatment plan, medications, possible side effects, patientverbalized understanding. All questions were answered to the best of my ability. This discharge took greater then 30 minutes in planning, reviewing documentation, counseling the patient, and discussing with other team members." ASSESSMENT ASSESSMENT Assessment OLAF NAJERA RESIDENT Mar 23, 2025 18:24
[2025-03-23] MEDS ORDERED: AMITRIPTYLINE HCL 10 MG TAB PO SCH (22:00)
== END 2025-03-23 20:15 | disposition home or self-care (01) | DRG 720 ==
LOC: ER 16:29 → OVERFLOW 22:12 → EAST 03-21 10:48
PROVIDERS: ADMIT Student in an Organized Health Care Education/Training Program; ATTEND Student in an Organized Health Care Education/Training Program
DX: A41.9 Sepsis, unspecified organism (principal); K76.0 Fatty (change of) liver, not elsewhere classified; R16.0 Hepatomegaly, not elsewhere classified; A09 Infectious gastroenteritis and colitis, unspecified; E53.8 Deficiency of other specified B group vitamins; E80.6 Other disorders of bilirubin metabolism; F17.210 Nicotine dependence, cigarettes, uncomplicated; K59.00 Constipation, unspecified; R74.01 Elevation of levels of liver transaminase levels; E66.9 Obesity, unspecified; Z90.49 Acquired absence of other specified parts of digestive tract; Z98.891 History of uterine scar from previous surgery; Z68.33 Body mass index [BMI] 33.0-33.9, adult; Z79.899 Other long term (current) drug therapy
CPT/HCPCS: 36415; 74018; 74176; 74181; 74250; 76705; 80048; 80053; 80074; 80320; 82248; 82607; 82728; 82746; 82962; 82977; 83010; 83605; 83615; 83690; 84702; 85025; 85045; 86038; 86704; 86706; 86708; 86803; 87040; 87340; 97163; G0378; J1885; J2405; J2470; J3480; J3490; J7060